=== PATIENT | male | born 2000 | race Caucasian/White ===

== ENCOUNTER 2022-07-21 12:22 | Emergency (ER) | payer BC, SELFPAY ==
[2022-07-21 12:25] VITALS: BP 142/69; PULSE 102; RESP 16; TEMP 36.8; O2SAT 98
[2022-07-21 12:54] LABS: Basophils Absolute Auto 0.1 K/mm3 (0.0-0.1); Basophils Percent Auto 0.4 % (0.2-1.2); Eosinophils Absolute Auto 0.3 K/mm3 (0-0.3); Eosinophils Percent Auto 1.7 % (0-4.4); Hematocrit 44.1 % (42.0-52.0); Hemoglobin 15.1 g/dL (14.0-18.0); Immature Granulocyte Absolute 0.08 K/mm3 (0.00-0.031); Immature Granulocyte Percent A 0.5 % (0-0.5); Lymphocytes Absolute Auto 2.15 K/mm3 (0.9-3.2); Lymphocytes Percent Auto 13.2 % (18.3-44.2); Mean Corpuscular HGB Conc 34.2 g/dl (32-36); Mean Corpuscular Hemoglobin 30.4 pg (26-34); Mean Corpuscular Volume 88.9 fl (80-100); Mean Platelet Volume 9.8 fl (7.4-10.4); Monocytes Absolute Auto 0.8 K/mm3 (0.1-0.6); Monocytes Percent Auto 4.9 % (2.6-8.5); Neutrophils Absolute Auto 12.9 K/mm3 (1.3-6.7); Neutrophils Percent Auto 79.3 % (45.5-73.1); Platelet Count Result 322 k/mm3 (150-375); Red Blood Count 4.96 M/mm3 (4.6-6.20); Red Cell Distribution Width 12.3 % (11.5-14.5); White Blood Count 16.2 K/mm3 (4.5-10.0)
[2022-07-21 13:05] LABS: Granular Casts Urine 30-49 /lpf; Hyaline Casts Urine 30-49 /lpf; Mucus Urine Heavy /lpf; Squamous Epithelial Cell Urine Rare /hpf (Few)
[2022-07-21 13:06] LABS: Add Urine Microscopic? YES; Appearance Urine Slightly Cloudy (Clear); Bilirubin Urine 1+ (Negative); Blood Urine Negative (Negative); Color Urine Dark Yellow (Yellow); Glucose Urine UA Negative (Negative); Ketones Urine Trace mg/dL (Negative); Leukocyte Esterase Ur Negative LEU/UL (Negative); Nitrate Urine Negative (Negative); Protein Urine 2+ mg/dL (Negative); Specific Grav Ur >= 1.030 (1.001-1.035); Urobilinogen Urine 0.2 mg/dL (<2.0)
[2022-07-21 13:07] LABS: Alanine Aminotransferase 28 U/L (6-50); Alkaline Phosphatase 98 U/L (38-126); Anion Gap 19 mmol/L (8-16); Aspartate Amino Transferase 35 U/L (17-59); Bilirubin,Total 0.4 mg/dL (0.2-1.3); Blood Urea Nitrogen 16 mg/dL (9-20); Calcium 9.4 mg/dL (8.4-10.2); Carbon Dioxide 27 mmol/L (22-30); Chloride 97 mmol/L (98-107); Estimated CRCL calculation 125 ml/min; Estimated Glomerular Filt Rate > 60; Ethanol < 10 mg/dL (<10); Glucose 98 mg/dL (65-110); Potassium 3.4 mmol/L (3.4-5.0); Sodium 143 mmol/L (137-145)
[2022-07-21 13:26] LABS: Amphetamine Screen Urine Negative (Negative); Barbiturate Screen Urine Negative (Negative); Benzodiazepines Screen Urine Negative (Negative); Cannabinoid Screen Urine Positive (Negative); Cocaine Screen Urine Negative (Negative); Methadone Screen Urine Negative (Negative); Opiate Screen Urine Negative (Negative); Phencyclidine Screen Urine Negative (Negative)
[2022-07-21 13:31] LABS: SARS-CoV-2 RNA PCR Negative
--- NOTE | 2022-07-21 14:13 | ED.PSYCH ---
HPI - Psych General Chief Complaint: Psychiatric Symptoms <SYEDA Yates Last Filed: 07/21/22 19:34> Stated Complaint: SI per mom <SYEDA Yates Last Filed: 07/21/22 19:34> Time Seen by Provider: 07/21/22 13:38 <SYEDA Yates Last Filed: 07/21/22 19:34> Source: patient and EMS <SYEDA Yates Last Filed: 07/21/22 19:34> Mode of arrival: ambulatory <SYEDA Yates Last Filed: 07/21/22 19:34> Limitations: no limitations <SYEDA Yates Last Filed: 07/21/22 19:34> History of Present Illness HPI Narrative: Patient is a 22-year-old male who was brought to the ED via PD for report of suicidal ideation. Per PD report, patient mentioned to his mother that he may be withdrawing from drugs. Parents wanted to get him admitted to a rehab facility however patient refused. The police were then called. The mother reportedly told PD that the patient had stated he would kill himself if the police were called. An involuntary form was filled out by police and patient was brought here. Patient does admit to snorting and crushing Percocet and fentanyl last week at his friend's house. He states he was experiencing some nausea last week which is why he thought he may be withdrawing. He states he does not want to go to rehab. He has not used any drugs since that time. He denies ever reporting SI or ever having thoughts of wanting to harm himself last week or today. Denies any HI. Denies AVH. He states he has a remote history of depression, but has not been feeling down or depressed lately. Not currently on any medications. <SYEDA Yates Last Filed: 07/21/22 19:34> Related Data Home Medications: Home Medications Medication Instructions Recorded Confirmed No Home Medications 07/21/22 07/21/22 <SYEDA Yates Last Filed: 07/21/22 19:34> Allergies/Adverse Reactions: Allergies Allergy/AdvReac Type Severity Reaction Status Date / Time No Known Allergies Allergy Verified 07/21/22 12:48 <Rae Phillips PA-C - Last Filed: 07/21/22 19:34> Review of Systems Review of Systems: CONSTITUTIONAL: Denies fever, chills, or sweats. ENT: Denies rhinorrhea, congestion, sore throat. CARDIOVASCULAR: Denies chest pain. RESPIRATORY: Denies cough or dyspnea. GASTROINTESTINAL: Denies abdominal pain, nausea, vomiting. GENITOURINARY: Denies penile discharge, dysuria or hematuria. NEUROLOGIC: Denies headache, numbness, or weakness. PSYCHIATRIC: Denies SI, HI, AVH, anxiety or depression. <Rae Phillips PA-C - Last Filed: 07/21/22 19:34> All systems reviewed & are unremarkable except as noted in HPI and below <Rae Phillips PA-C - Last Filed: 07/21/22 19:34> PMFSH Past Medical History Medical History: Medical History (Updated 07/22/22 @ 00:00 by Yeyo Ruth) Depression <Rae Phillips PA-C - Last Filed: 07/21/22 19:34> Surgical History Surgical History: Surgical History (Updated 07/21/22 @ 19:17 by Rae Phillips PA-C) No pertinent past surgical history <Rae Phillips PA-C - Last Filed: 07/21/22 19:34> Social History Social History: Social History (Updated 07/21/22 @ 19:18 by Rae Phillips PA-C) Substance use: current Substance use type: opiates and prescription drug <Rae Phillips PA-C - Last Filed: 07/21/22 19:34> Exam Narrative: GENERAL: Well appearing, well-nourished, non-toxic, in no acute distress. HEAD: Normocephalic, atraumatic. ENT: PERRLA/EOMI, conjunctive a clear. No nasal discharge. Mucous membranes moist. NECK: Supple. No adenopathy, no masses. RESPIRATORY: Airway patent, respirations nonlabored. Clear to auscultation bilaterally, no rales, rhonchi, wheezing. CARDIOVASCULAR: Regular rate and rhythm without murmurs, rubs, or gallops. Radial pulses 2+ and equal bilaterall
== END 2022-07-21 14:30 | disposition home or self-care (01) ==
PROVIDERS: Emergency Medicine; Physician Assistant; Emergency Provider Emergency Medicine
DX: F19.10 Other psychoactive substance abuse, uncomplicated (principal); R82.998 Other abnormal findings in urine; D72.829 Elevated white blood cell count, unspecified; Z20.822 Contact with and (suspected) exposure to COVID-19
CPT/HCPCS: 36415; 80053; 80307; 81001; 84443; 85025; 87086; 87088; 87491; 87591; 99284; U0003; U0005

== ENCOUNTER 2023-08-06 09:46 | Emergency (ER) | payer BC, SELFPAY ==
[2023-08-06 09:58] VITALS: BP 119/76; PULSE 97; RESP 18; O2SAT 98
[2023-08-06 10:13] VITALS: BP 119/76; PULSE 94; RESP 14; O2SAT 98
--- NOTE | 2023-08-06 10:20 | ECG_ITS ---
Measurements Intervals [place] Rate: 80 P: 68 MA: 136 QRS: 74 QRSD: 94 T: 74 QT: 356 QTc: 411 Interpretive Statements SINUS RHYTHM WITH SINUS ARRHYTHMIA NORMAL ECG NO PREVIOUS ECG AVAILABLE FOR COMPARISON Electronically Signed On 08-06-2023 10:53:07 [employer] OFFICER by Conrado Galeana D.O.
--- NOTE | 2023-08-06 10:49 | ED.GENADULT ---
HPI - General Adult General Chief complaint: Psychiatric Symptoms Stated complaint: behavioral issues Time Seen by Provider: 08/06/23 09:51 History of Present Illness HPI narrative: 23-year-old male presenting emergency department for evaluation after making threatening statements to family members. Patient does admit to drinking a lot of alcohol last night and patient does take kratom. Patient states that his family members noticed that he was slurring his speech and was stumbling so they accused him of using Xanax, patient has a prior history of using Xanax but states he has not been. Patient states that this made him upset and that this was a trigger for a very heated argument the store last night and continued into this morning. Please recall. Please state that the patient did make threatening statements regarding family. Patient did not make any suicidal statements to the police. Upon arrival to the ED patient is alert And appropriate. Patient denies any homicidal or suicidal ideation Related Data Home Medications Medication Instructions Recorded Confirmed No Home Medications 07/21/22 07/21/22 Allergies Allergy/AdvReac Type Severity Reaction Status Date / Time No Known Allergies Allergy Verified 08/06/23 12:40 Review of Systems Review of Systems: All systems reviewed & are unremarkable except as noted in HPI and below PMFSH Past Medical History Medical History (Updated 08/06/23 @ 13:38 by Sukhi Lehman MD) Depression Surgical History Surgical History (Updated 07/21/22 @ 19:17 by Rae Phillips PA-C) No pertinent past surgical history Social History Social History (Updated 07/21/22 @ 19:18 by Rae Phillips PA-C) Substance use: current Substance use type: opiates Exam Narrative: APPEARANCE: Well appearing, no pain, no distress, well-nourished. HEAD: normocephalic, atraumatic. EYES: PERRLA/EOMI, conjunctivae clear. NOSE: Normal no drainage EARS:TMS clear with good light reflex. THROAT: Pharynx clear, no exudate. NECK: Supple. No adenopathy, no masses. RESPIRATORY: Airway patent, respirations nonlabored. Clear to auscultation bilaterally, no rales, rhonchi, wheezing. CARDIOVASCULAR: Regular rate and rhythm without murmurs rubs or gallops. ABDOMINAL: Soft, nontender, nondistended, normal bowel sounds MUSCULOSKELETAL: Moves all extremities. Strength/ROM intact, No edema, No calf tenderness. NEURO: Alert. Cranial nerves II through XII intact. Good gait. Good coordination SKIN: Warm, dry. Normal Color Course Course Emergency Course: 23-year-old male presenting emergency department for evaluation for making homicidal statements. Patient continues to deny making any homicidal statements. Patient denies any current homicidal or suicidal thoughts. Patient was evaluated by the crisis counselor and they do not feel he is a threat to self. order of clear and present danger was placed. Reevaluation(s) Reevaluation #1: Patient is medically cleared for evaluation by the crisis counselor. Vital Signs Vital signs: Vital Signs Pulse Rate 97 08/06/23 09:58 Respiratory Rate 18 08/06/23 09:58 Blood Pressure 119/76 08/06/23 09:58 Pulse Oximetry 98 08/06/23 09:58 Pulse Rate 92 08/06/23 14:10 Respiratory Rate 16 08/06/23 14:10 Blood Pressure 131/88 08/06/23 14:10 Pulse Oximetry 99 08/06/23 14:10 Oxygen Delivery Room Air 08/06/23 10:13 Medical Decision Making Vital Signs Vital Signs: Vital Signs Pulse Rate 97 08/06/23 09:58 Respiratory Rate 18 08/06/23 09:58 Blood Pressure 119/76 08/06/23 09:58 Pulse Oximetry 98 08/06/23 09:58 Pulse Rate 92 08/06/23 14:10 Respiratory Rate 16 08/06/23 14:10 Blood Pressure 131/88 08/06/23 14:10 Pulse Oximetry 99 08/06/23 14:10 Oxygen Delivery Room Air 08/06/23 10:13 Lab Data 08/06/23 10:44 08/06/23 10:43 Labs: Lab Res
[2023-08-06 10:53] LABS: Basophils Absolute Auto 0.1 K/mm3 (0.0-0.1); Basophils Percent Auto 0.6 % (0.2-1.2); Eosinophils Absolute Auto 0.2 K/mm3 (0-0.3); Eosinophils Percent Auto 2.6 % (0-4.4); Hematocrit 44.9 % (42.0-52.0); Immature Granulocyte Absolute 0.02 K/mm3 (0.00-0.031); Immature Granulocyte Percent A 0.2 % (0-0.5); Lymphocytes Absolute Auto 2.08 K/mm3 (0.9-3.2); Mean Corpuscular HGB Conc 33.4 g/dl (32-36); Mean Corpuscular Hemoglobin 30.4 pg (26-34); Mean Corpuscular Volume 91.1 fl (80-100); Mean Platelet Volume 10.2 fl (7.4-10.4); Monocytes Absolute Auto 0.6 K/mm3 (0.1-0.6); Monocytes Percent Auto 6.3 % (2.6-8.5); Neutrophils Absolute Auto 5.8 K/mm3 (1.3-6.7); Neutrophils Percent Auto 66.3 % (45.5-73.1); Platelet Count Result 286 k/mm3 (150-375); Red Blood Count 4.93 M/mm3 (4.6-6.20); Red Cell Distribution Width 12.6 % (11.5-14.5); White Blood Count 8.7 K/mm3 (4.5-10.0)
[2023-08-06 10:59] LABS: Bacteria Urine None Seen /hpf; Non Pathogenic Casts 0-2; RBC Urine 0-2 /hpf (0-2); Squamous Epithelial Cell Urine None seen /hpf (Few); WBC Urine 0-5 /hpf
[2023-08-06 11:08] LABS: Alanine Aminotransferase 38 U/L (6-50); Albumin Level 4.9 g/dL (3.5-5.1); Alkaline Phosphatase 74 U/L (38-126); Anion Gap 12 mmol/L (8-16); Aspartate Amino Transferase 52 U/L (17-59); Bilirubin,Total 0.6 mg/dL (0.2-1.3); Blood Urea Nitrogen 16 mg/dL (9-20); Calcium 9.3 mg/dL (8.4-10.2); Carbon Dioxide 24 mmol/L (22-30); Chloride 106 mmol/L (98-107); Estimated Glomerular Filt Rate > 60; Glucose 77 mg/dL (65-110); Potassium 4.5 mmol/L (3.4-5.0); Sodium 142 mmol/L (137-145)
[2023-08-06 11:09] LABS: Acetaminophen < 10 ug/mL (10-30); Ethanol 11 mg/dL (<10); Magnesium 1.9 mg/dL (1.6-2.3); Salicylate < 1.0 mg/dL (2-20)
[2023-08-06 11:10] LABS: Appearance Urine Clear (Clear); Bilirubin Urine Negative (Negative); Blood Urine Negative (Negative); Color Urine Yellow (Yellow); Glucose Urine UA Negative (Negative); Ketones Urine Trace mg/dL (Negative); Leukocyte Esterase Ur Negative LEU/UL (Negative); Nitrate Urine Negative (Negative); Protein Urine Negative (Negative); Specific Grav Ur 1.017 (1.001-1.035); Urobilinogen Urine 0.2 mg/dL (<2.0)
[2023-08-06 11:23] LABS: Add Urine Microscopic? YES
[2023-08-06 11:28] LABS: Influenza A QL RT-PCR Negative (Negative); Influenza B QL RT-PCR Negative (Negative); RSV RNA, RT-PCR Negative (Negative); SARS-CoV-2 RNA PCR Negative (Negative)
[2023-08-06 11:30] VITALS: BP 109/68; PULSE 67; RESP 12; O2SAT 100
[2023-08-06 11:31] VITALS: BP 109/68; PULSE 81; RESP 24
[2023-08-06 11:42] LABS: Thyroid Stimulating Hormone Reflex 0.561 uIU/mL (0.465-4.68)
--- NOTE | 2023-08-06 11:56 | PC.NURSE ---
Pt work notified Pt in ED
[2023-08-06 12:00] LABS: Amphetamine Screen Urine Negative (Negative); Barbiturate Screen Urine Negative (Negative); Benzodiazepines Screen Urine Positive (Negative); Cannabinoid Screen Urine Positive (Negative); Cocaine Screen Urine Negative (Negative); Methadone Screen Urine Negative (Negative); Opiate Screen Urine Negative (Negative); Phencyclidine Screen Urine Negative (Negative)
--- NOTE | 2023-08-06 12:43 | PC.NURSE ---
Spoke w/ Ortega at [facility] pt was denied
[2023-08-06 14:10] VITALS: BP 131/88; PULSE 92; RESP 16; O2SAT 99
== END 2023-08-06 14:11 | disposition home or self-care (01) ==
PROVIDERS: Emergency Provider Emergency Medicine
DX: F10.129 Alcohol abuse with intoxication, unspecified (principal); F12.10 Cannabis abuse, uncomplicated; F13.10 Sedative, hypnotic or anxiolytic abuse, uncomplicated; Y90.0 Blood alcohol level of less than 20 mg/100 ml; R45.850 Homicidal ideations; Z11.52 Encounter for screening for COVID-19
CPT/HCPCS: 36415; 80053; 80307; 81001; 83735; 84443; 85025; 87637; 93005; 99284